=== PATIENT | female | born 1955 | race Caucasian/White ===

== ENCOUNTER 2018-04-20 08:27 | Day surgery (SDC) | payer MEDICAID ==
[2018-04-20] MEDS ORDERED: LR 1,000 ML IV ONE (08:42)
[2018-04-20] MEDS ORDERED: LIDOCAINE 1% 2 ML INJ ID PRN (08:42)
--- NOTE | 2018-04-20 09:19 | PDANEPAE ---
ANE History of Present Illness egd/colon ANE Past Medical History - Cardiovascular History Hx Hypertension: No Hx Arrhythmias: No Hx Chest Pain: No Hx Coronary Artery / Peripheral Vascular Disease: No Hx CHF / Valvular Disease: No Hx Palpitations: No - Pulmonary History Hx COPD: Yes Hx Asthma/Reactive Airway Disease: No Hx Recent Upper Respiratory Infection: No Hx Oxygen in Use at Home: Yes O2 in Use at Home (L/minute): 4L at all times Hx Sleep Apnea: Yes - Neurologic History Hx Cerebrovascular Accident: No Hx Seizures: No Hx Dementia: No - Endocrine History Hx Diabetes: No Hypothyroid: No Hyperthyroid: No Obesity: yes - Renal History Hx Renal Disorders: No - Liver History Hx Hepatic Disorders: Yes Hepatic History Comment: alcoholic cirhossis, hep c - Neurological & Psychiatric Hx Hx Neurological and Psychiatric Disorders: No - GI History GERD: moderate Hx Gastrointestinal Disorders: Yes - Chronic Pain History Chronic Pain: Yes ANE Review of Systems Review of Systems: - Exercise capacity Exercise capacity: <4 METS ANE Patient History - Allergies Allergies/Adverse Reactions: tramadol Allergy (Verified 04/20/18 09:13) - Home Medications Home Medications: Fluticasone/Salmeter 500/50Mcg [Advair 500/50 (*)] 1 puffs IH BID 10/15/14 [ Last Taken 02/23/15] LEVETIRACETAM [Keppra 1000 mg] 1,000 mg PO BID 10/15/14 [Last Taken 02/23/15] Lipase/Protease/Amylase [CREON DR 12,000 UNITS CAPSULE] 1 each PO TID 10/15/14 [ Last Taken 02/23/15] Pregabalin [Lyrica] 150 mg PO BID 10/15/14 [Last Taken 02/23/15] traZODone [traZODONE 50MG (*)] 50 mg PO HS 10/15/14 [Last Taken 02/23/15] Calcium Carbonate [Tums 500MG (*)] 500 mg PO PRN PRN 02/23/15 [Last Taken Unknown] LORazepam [Ativan (*)] 0.5 mg PO Q4 PRN 02/23/15 [Last Taken Unknown] Loperamide HCl [Imodium Oral Liquid 0.2 mg/ml] 2 mg PO DAILY 02/23/15 [Last Taken 02/23/15] Multivitamins W-Minerals [Thera M Plus Tablet (*)] 1 each PO DAILY 02/23/15 [ Last Taken 02/23/15] Ondansetron Odt [Zofran Odt 4 mg (*)] 4 mg PO BID PRN 02/23/15 [Last Taken Unknown] oxyCODONE HCL [Roxicodone] 15 mg PO Q6 PRN 02/23/15 [Last Taken 02/22/15] - NPO status NPO Status: no food or drink >8 hours NPO Since - Liquids (Date): 04/19/18 NPO Since - Liquids (Time): 22:00 NPO Since - Solids (Date): 04/19/18 NPO Since - Solids (Time): 11:00 - Smoking Hx Smoking Status: Former smoker ANE Labs/Vital Signs - Vital Signs Blood Pressure: 109/86 Heart Rate: 74 Respiratory Rate: 22 O2 Sat (%): 93 Height: 154.94 cm Weight: 73.482 kg ANE Physical Exam - Airway Mallampati Score: Class 2 Mouth exam: normal dental/mouth exam - Pulmonary Pulmonary: no respiratory distress - Cardiovascular Cardiovascular: regular rate and rhythym - ASA Status ASA Status: III ANE Anesthesia Plan Anesthesia Plan: general endotracheal anesthesia
[2018-04-20] MEDS ORDERED: LIDOCAINE 2% 2 ML INJ ONE ×3 (09:22)
[2018-04-20] MEDS ORDERED: ROCURONIUM 50 MG/5 ML VIAL ONE (09:22)
[2018-04-20] MEDS ORDERED: SUCCINYLCHOLINE CHLORIDE 200 MG/10 ML SYR IVP ONE (09:22)
[2018-04-20] MEDS ORDERED: fentaNYL 100 MCG/2 ML INJ ONE (09:24)
[2018-04-20] MEDS ORDERED: PROPOFOL 200 MG/20 ML VIAL ONE (09:25)
--- NOTE | 2018-04-20 09:53 | PDGENHP ---
History & Physical Chief Complaint: diarrhea, cirrohsis History of Present Illness: mo.nths of diarrhea, bad hb reflux, hx cirrohsis Pertinent Past, Social, Family History: no tobacco quit 2016. no alcohol. FHx - father cancer lymphoma. cirrhosis, asthma Relevant Physical Exam: A+Ox3. CTA. S1S2. +BS, sot nt Cardiorespiratory Assessment: class 3
[2018-04-20] MEDS ORDERED: SUGAMMADEX SODIUM 200 MG/2 ML VIAL IVP ONE (10:31)
[2018-04-20] MEDS ORDERED: NALOXONE HCL 0.4 MG/ML INJ IVP PRN (11:10)
[2018-04-20] MEDS ORDERED: ONDANSETRON 4 MG/2 ML VIAL IVP PRN (11:10)
[2018-04-20] MEDS ORDERED: ALBUTEROL 3 ML DEYVIAL IH PRN (11:10)
[2018-04-20] MEDS ORDERED: fentaNYL 100 MCG/2 ML INJ IVP PRN (11:10)
--- NOTE | 2018-04-20 11:10 | POSTANESTH ---
Post Anesthetic Evaluation Cardiovascular Status: Normal, Stable Respiratory Status: Normal, Stable Level of Consciousness/Mental Status: Can Participate in Eval Pain Control: Adequate, Prn Tx Ordered Nausea/Vomiting Control: Adequate, Prn Tx Ordered Complications Possibly Related to Anesthesia: None Noted
--- NOTE | 2018-04-20 11:14 | GIREPORT ---
[facility] Surgical Services - Endoscopy Department Patient Name: Fannie Vallejo Procedure Date: 04/20/2018 10:08 AM Patient Type: Outpatient Attending MD/ ER Physician: Analisa Marquez Procedure: Upper GI endoscopy Indications: Heartburn Providers: Demetrius Randhawa MD Referring MD: Lisa Mckenna PA-C Medicines: General Anesthesia Complications: No immediate complications. Estimated blood loss: Minimal. Description of Procedure: After obtaining informed consent, the endoscope was passed under direct vision. Throughout the procedure, the patient's blood pressure, pulse, and oxygen saturations were monitored continuously. The Endoscope was intro duced through the mouth, and advanced to the third part of duodenum. The uppe r GI endoscopy was accomplished without difficulty. The patient tolerated th e procedure well. Findings: LA Grade B (one or more mucosal breaks greater than 5 mm, not extending between the tops of two mucosal folds) esophagitis with no bleeding was found in the lower third of the esophagus. Biopsies were taken with a c old forceps for histology. Estimated blood loss was minimal. The entire examined stomach was normal. The examined duodenum was normal. Biopsies for histology were taken wit h a cold forceps for evaluation of celiac disease. Estimated blood loss was minimal. The exam was otherwise without abnormality. Estimated Blood Loss: Estimated blood loss was minimal. Post Op Diagnosis: - LA Grade B reflux esophagitis. Biopsied. - Normal stomach. - Normal examined duodenum. Biopsied. - The examination was otherwise normal. Recommendation: - Await pathology results. - My office will call with the pathology result with 5-7 days. If you h ave not heard from my office by 12-14, do not assume the pathology is placido l, please call [phone] to get the pathology reults. - Follow an antireflux regimen. - Use Prilosec (omeprazole) 40 mg PO daily. Take 30-60 minutes before breakfast - Use Zantac (ranitidine) 300 mg PO at bedtime. (variceal sureillance) - Perform a colonoscopy today. - Return to primary care physician as previously scheduled. - Thank you for allowing me to help in your patient's care. Do not hesi lora to call with any questions. Attending Participation: I personally performed the entire procedure. Edis Romo M.D Demetrius Randhawa MD 04/20/2018 11:14:06 AM This report has been signed electronicallyMathew MD Edis Number of Addenda: 0 Note Initiated On: 04/20/2018 10:08 AM [email or web address]}
--- NOTE | 2018-04-20 11:19 | GIREPORT ---
Formerly [facility] Surgical Services - Endoscopy Department Patient Name: Fannie Vallejo Procedure Date: 04/20/2018 10:08 AM Patient Type: Outpatient Attending MD/ ER Physician: Analisa Marquez Procedure: Colonoscopy Indications: Clinically significant diarrhea of unexplained origin, Personal history of colonic polyps Providers: Bonifacio Randhawa MD Referring MD: Lisa Mckenna PA-C Medicines: General Anesthesia Complications: No immediate complications. Estimated blood loss: Minimal. Description of Procedure: After obtaining informed consent, the scope was passed under direct vis ion. Throughout the procedure, the patient's blood pressure, pulse, and oxyg en saturations were monitored continuously. The Colonoscope was introduced through the anus and advanced to the terminal ileum, with identificatio n of the appendiceal orifice and IC valve. The colonoscopy was performed wit hout difficulty. The patient tolerated the procedure well. The quality of th e bowel preparation was poor. Findings: The digital rectal exam was normal. The terminal ileum appeared normal. Extensive amounts of stool was found in the entire colon, interfering w ith visualization. Lavage of the area was performed using copious amounts o f sterile water, resulting in incomplete clearance with fair visualizatio n. A 4 mm polyp was found in the ascending colon. The polyp was sessile. T he polyp was removed with a piecemeal technique using a cold biopsy forcep s. Resection and retrieval were complete. Estimated blood loss was minimal . The sigmoid colon, descending colon, transverse colon, ascending colon and cecum appeared normal. Biopsies for histology were taken with a cold fo rceps from the cecum, ascending colon, transverse colon, descending colon and sigmoid colon for evaluation of microscopic colitis. Estimated blood lo ss was minimal. Many medium-mouthed diverticula were found in the sigmoid colon and descending colon. The exam was otherwise without abnormality. Estimated Blood Loss: Estimated blood loss was minimal. Post Op Diagnosis: - Preparation of the colon was poor. - The examined portion of the ileum was normal. - Stool in the entire examined colon. - One 4 mm polyp in the ascending colon, removed piecemeal using a cold biopsy forceps. Resected and retrieved. - The sigmoid colon, descending colon, transverse colon, ascending colo n and cecum are normal. Biopsied. - Diverticulosis in the sigmoid colon and in the descending colon. - The examination was otherwise normal. Recommendation: - Await pathology results. - My office will call with the pathology result with 5-7 days. If you h ave not heard from my office by 12-14, do not assume the pathology is placido l, please call [phone] to get the pathology results. - High fiber diet indefinitely. - 30-35 grams of dietary fiber per day. Can use supplemental fiber. - A high fiber diet may decrease risk of complications from diverticulo sis. There is no need to avoid seeds or nuts. - Repeat colonoscopy in 3 years for surveillance. - Patient has a contact number available for emergencies. The signs and symptoms of potential delayed complications were discussed with the pat ient. Return to normal activities tomorrow. Written discharge instructions we re provided to the patient. - Continue present medications. - Discharge patient to home (ambulatory). - Return to primary care physician as previously scheduled. - Thank you for allowing me to help in your patient's care. Do not hesi lora to call with any questions. Attending Participation: I personally performed the entire procedure. Edis Romo M.D Demetrius Randhawa MD 04/20/2018 11:18:43 AM This report has been signed electronicallyMathew MD Edis Number of Addenda: 0 Note Initiated On: 04/20/2018 10:08 AM Total Procedure Duration Time 0 hours 27 minutes 48 seconds [email or web address]
[2018-04-20 12:05] VITALS: BP 101/69
== END 2018-04-20 13:03 | disposition home or self-care (01) ==
LOC: FSGY 08:27
PROVIDERS: ATTEND Internal Medicine Gastroenterology
PROC: 0DB98ZX Excision of Duodenum, Via Natural or Artificial Opening Endoscopic, Diagnostic (ICD-10-PCS; principal; 2018-04-20 09:45)
PROC: 0DBK8ZX Excision of Ascending Colon, Via Natural or Artificial Opening Endoscopic, Diagnostic (ICD-10-PCS; principal; 2018-04-20 09:45)
PROC: 0DJD8ZZ Inspection of Lower Intestinal Tract, Via Natural or Artificial Opening Endoscopic (ICD-10-PCS; principal; 2018-04-20 09:45)
PROC: 0DJ08ZZ Inspection of Upper Intestinal Tract, Via Natural or Artificial Opening Endoscopic (ICD-10-PCS; principal; 2018-04-20 09:45)
PROC: 0DBE8ZX Excision of Large Intestine, Via Natural or Artificial Opening Endoscopic, Diagnostic (ICD-10-PCS; principal; 2018-04-20 09:45)
PROC: 0DB38ZX Excision of Lower Esophagus, Via Natural or Artificial Opening Endoscopic, Diagnostic (ICD-10-PCS; principal; 2018-04-20 09:45)
DX: R19.7 Diarrhea, unspecified (principal); Z86.010 Personal history of colon polyps; D12.2 Benign neoplasm of ascending colon; K57.30 Diverticulosis of large intestine without perforation or abscess without bleeding; K21.0 Gastro-esophageal reflux disease with esophagitis; J44.9 Chronic obstructive pulmonary disease, unspecified; Z87.890 Personal history of sex reassignment; K70.30 Alcoholic cirrhosis of liver without ascites
CPT/HCPCS: J0330; J2704; J3010